=== PATIENT | female | born 2000 | race Two or more races ===

== ENCOUNTER 2024-08-25 17:54 | Emergency (ER) | payer MEDICAID, SELFPAY ==
[2024-08-25 18:24] VITALS: BP 116/78; PULSE 69; RESP 18; TEMP 36.9; O2SAT 100; BMI 22.8
--- NOTE | 2024-08-25 19:03 | PD.EDRME ---
Rapid Medical Screening Exam RME Arrival date/time: 08/25/24 17:54 Chief Complaint: Headache Time Seen by Provider: 08/25/24 18:33 Vital signs: Vital Signs Temperature 98.4 F 08/25/24 18:24 Pulse Rate 69 08/25/24 18:24 Respiratory Rate 18 08/25/24 18:24 Blood Pressure 116/78 08/25/24 18:24 Pulse Oximetry (%) 100 08/25/24 18:24 Oxygen Delivery Method Room Air 08/25/24 18:24 Vital signs reviewed by provider: Yes RME Narrative: 24-year-old female with no reported past medical history presents for evaluation of headache and bodyaches x 5 days. She endorses chest tightness and fatigue. Denies nausea, vomiting, diarrhea, abdominal pain, cough, neck pain, ear pain. Denies prior similar headaches. No known sick contacts.
[2024-08-25] MEDS: ACETAMINOPHEN 325 MG TABLET 650 MG PO (19:24)
[2024-08-25] MEDS: DiphenhydrAMINE INJ 50 MG/ML VIAL 25 MG IM (19:24)
[2024-08-25] MEDS: METOCLOPRAMIDE INJ 5 MG/ML VIAL 2 ML 10 MG IM (19:24)
--- NOTE | 2024-08-25 19:57 | EDNOTE_ITS ---
ED General RME/HPI General Chief complaint: Headache Stated complaint: HEADACHE X 4 DAYS Time Seen by Provider: 08/25/24 18:33 Arrival date/time: 08/25/24 17:54 CC: Headache HPI ongoing for 5 days, complains of forehead pressure/pain that radiates over the top of her skull. Admits she had a runny nose for several days prior to the onset of the headache. Denies blurred vision but says that she has noise sensitivities no prior history of similar events not the worst headache of the life. Denies any nausea or vomiting. Patient also denies fever neck stiffness shortness of breath or difficulty breathing. RME / HPI RME / HPI narrative: 24-year-old female with no reported past medical history presents for evaluation of headache and bodyaches x 5 days. She endorses chest tightness and fatigue. Denies nausea, vomiting, diarrhea, abdominal pain, cough, neck pain, ear pain. Denies prior similar headaches. No known sick contacts. Related Data Home Medications ?Medication ?Instructions ?Recorded ?Confirmed prenat.vits,teddy,bjb-addp-cpywe 1 tab PO QDAY 05/16/21 05/16/21 Previous Rx's ?Medication ?Instructions ?Recorded cetirizine 10 mg tablet 10 mg PO QDAY PRN allergy symptoms 08/25/24 #10 tabs prednisone 20 mg tablet See Taper PO BID 3 days #6 tabs 08/25/24 Allergies Allergy/AdvReac Type Severity Reaction Status Date / Time amoxicillin Allergy Verified 08/25/24 17:54 naproxen Allergy Verified 08/25/24 17:54 Review of Systems Review of Systems Narrative Review of Systems: GEN: No fever, no chills, no weight loss EYES: No discharge, no visual changes, no pain HEENT: No ear pain, no congestion, no sore throat PULM: No shortness of breath, no cough, no congestion CV: No chest pain, no dyspnea on exertion, no palpitations GI: No nausea, no vomiting, no diarrhea, no pain, no constipation : No frequency, no urgency, no dysuria MUSC/SKEL: No joint pain, no back pain SKIN: No rash PSYCH: No hallucinations, no depression HEME/LYMPH: No easy bleeding or bruising tendencies NEURO: No weakness, + headache Past Medical History Past Medical History CARDIAC: Negative Congestive Heart Failure RESPIRATORY: Negative Chronic Obstructive Pulmonary Disease (COPD) GENITOURINARY: Negative Renal Disease ENDOCRINE: Negative Diabetes Mellitus Type 1 or Diabetes Mellitus Type 2 Social History SMOKING STATUS: Never smoker ED Exam Narrative Physical exam: [General: Not in any acute distress Head normocephalic mild pain with pressure of the frontal sinuses. HEENT: Eyes pupils are PERRLA EOMs are intact all other subsystems of HEENT are within acceptable limits Neck is supple nontender Chest equal chest rise nontender to palpation Respiratory: Clear to auscultation no wheezes crackles or rubs CV: Rate rhythm is regular no murmurs rubs or clicks Abdomen is soft nontender no masses positive bowel sounds all 4 quadrants Back: No CVA tenderness no spinous process tenderness from cervical spine thoracic and lumbar spine Skin: Intact no petechiae rash induration ulceration or crepitus Extremities: Moving all extremity against resistance cap refill less than 2 seconds neurosensory intact Neuro: Awake alert oriented x3 Glascow coma 15 no focal deficits] Course Quality Measures none Orders Category Date Time Status Bedside COVID-19 Antigen Test NOW Care 08/25/24 19:01 Active Bedside Influenza A&B Antigen Test NOW Care 08/25/24 19:03 Active Acetaminophen Tab [Tylenol Tab] Med 08/25/24 19:01 Discontinued 650 mg PO X1 ONE DiphenhydrAMINE INJ [Benadryl Inj] Med 08/25/24 19:01 Discontinued 25 mg IM X1 ONE Metoclopramide Inj [Reglan Inj] Med 08/25/24 19:01 Discontinued 10 mg IM X1 ONE Vital Signs Vital signs: Vital Signs Temperature 98.4 F 08/25/24 18:24 Pulse Rate 69 08/25/24 18:24 Respiratory Rate 18 08/25/24 18:24 Blood Pressure 116/78 08/25/24 18:24 Pulse Oximetry (%) 100 08/25/24 18:24 Oxygen Delivery Method Room Air 08/25/24 18:24 [facility] Patient data External records reviewed:: [facility] previous records Clinical information provided by:: patient Social determinants that could affect healthcare access:: none Patient has the following chronic illnesses:: None How is presenting disease/condition affected by chronic disease/condition?: uneffected by Evaluation data The following diagnostics were reviewed and interpreted by me:: other (specify) (None) Lab and/or radiology exams considered but not ordered:: None Interpretation Summary: Frontal sinus headache Medications Medications considered but not ordered:: None Medication administrations:: Medication Administration History Discontinued Medications Acetaminophen (Acetaminophen 325 Mg Tablet) 650 mg PO X1 ONE Stop: 08/25/24 19:02 Last Admin: 08/25/24 19:24 Dose: 650 mg Documented By: SERAFIN Diphenhydramine HCl (Diphenhydramine Inj 50 Mg/Ml Vial) 25 mg IM X1 ONE Stop: 08/25/24 19:02 Last Admin: 08/25/24 19:24 Dose: 25 mg Documented By: SERAFIN Metoclopramide HCl (Metoclopramide Inj 5 Mg/Ml Vial 2 Ml) 10 mg IM X1 ONE Stop: 08/25/24 19:02 Last Admin: 08/25/24 19:24 Dose: 10 mg Documented By: SERAFIN None Consultations Consultation(s) initiated? (list below): No Diagnosis Differential Diagnosis ED Complaint MDM: Tension headache cluster headache sinus headache Most likely diagnosis given after review of the tests above:: Sinus headache Admission Indicated Admission indicated?: not indicated Explain why admission is indicated or not indicated:: Stable for outpatient follow-up Admission Request Was there a request for admission?: No Disposition Plan Disposition Plan: Discharge Discharge Attestation Discharge Attestation: The patient and all family members were given an opportunity to ask questions and understood the discharge instructions. Discharge instructions specifically effects, indications for sooner follow up or return to the emergency department, and the expected course of current diagnosis. Patient condition: Stable Medical Decision Making Differential Diagnosis Differential Diagnosis: Tension headache cluster headache sinus headache Discharge Plan Plan Patient Disposition: HOME (Self Care) Patient condition on transfer: Stable Prescriptions/Referrals Prescriptions/Med Rec: New prednisone 20 mg tablet See Taper PO BID 3 Days Qty: 6 0RF Taper: Prednisone Taper 20 mg DAILY for 2 Days and 0 Hour 10 mg DAILY for 2 Days and 0 Hour 5 mg DAILY for 7 Days and 0 Hour cetirizine 10 mg tablet 10 mg PO QDAY PRN (Reason: allergy symptoms) Qty: 10 0RF No Action Vitamin Tablet 1 tab PO QDAY Referrals: Carson Whitfield MD [Primary Care Provider] - In 1 week Problem List Clinical Impression: Sinus headache Patient/Caregiver Discharge Instructions Other Activity Instructions:: Take the medications as prescribed if is worsening symptoms return the emergency room immediately for further evaluation. Education Materials: Self-Care for Headaches Print Language: [place] Stand Alone Forms: Ira Award Info., Patient Portal Info Letter, Work/School Release PA/GRAB OPERATOR Supervising Physician PA/GRAB OPERATOR Supervising Physician: Roger Andrews ENP
== END 2024-08-25 20:15 | disposition home or self-care (01) ==
PROVIDERS: Emergency Provider Emergency Medicine; PCP Family Medicine
DX: R51.9 Headache, unspecified (principal)
CPT/HCPCS: 87400; 87811; 96372; 99283; J1200; J2765; A9270